=== PATIENT | female | born 1985 ===

== ENCOUNTER 2021-04-06 21:47 | Emergency (ER) | payer BC, SELFPAY ==
[2021-04-06 21:49] VITALS: BP 126/83; PULSE 74; RESP 14; TEMP 36.3; O2SAT 99
--- NOTE | 2021-04-06 23:39 | ED.ABDPAIN ---
HPI - Abdominal Pain General Chief Complaint: Abdominal Pain Stated Complaint: ABD/BACK PAIN, N/V Time Seen by Provider: 04/06/21 23:31 Source: patient and RN notes reviewed Mode of arrival: ambulatory Limitations: no limitations History of Present Illness HPI narrative: This is 36 year old female who presents for evaluation of epigastric abdominal pain. She reports she ate a left over hamburger at 530 pm this afternoon. She developed sudden onset epigastric abdominal pain with nausea and vomiting at 8 30. She reports her pain last for an hour or so. Her pain resolved by the time she came to ER. She reports history of gallstone and kidney stones. She denies fever, chills, hematuria or dysuria. MD elicited complaint: abdominal pain Pertinent past history: kidney stones Onset (ago): hour(s) Pain Consistency: now resolved Location: epigastric Radiation: back Related Data Home Medications Medication Instructions Recorded Confirmed citalopram mg 04/06/21 pravastatin 04/06/21 Allergies Allergy/AdvReac Type Severity Reaction Status Date / Time No Known Allergies Allergy Unverified 04/06/21 21:57 Review of Systems Review of Systems: All systems reviewed & are unremarkable except as noted in HPI and below PMFSH Past Medical History Medical History (Updated 04/07/21 @ 00:43 by Irasema Palma MD) Gallstones Kidney stones Family History Family History (Updated 08/12/17 @ 07:59 by DOCTOR UNKNOWN) Mother Family history of thyroid disease Social History Social History Smoking status: Never smoker Alcohol intake: current Exam Const: General: no acute distress and alert Orientation/consciousness: patient oriented x3 Eyes: EOM: EOMs intact bilaterally Resp: Effort & Inspection: normal respiratory effort and no retractions Auscultation: clear to auscultation bilaterally Cardio: Rate: regular rate Rhythm: regular rhythm Heart sounds: no murmurs GI: GI Palp: Yes Soft to palpation, No Tenderness to palpation present (GI) and No Guarding due to palpation present (GI) Auscultation: normal bowel sounds Back/Spine/Pelvis: Back: no CVA tenderness Skin: General skin exam: normal color Neuro: General: patient oriented x3, moves all extremities and CN's II-XI intact bilaterally Psych: Mental Status: mental status grossly normal Affect: normal affect Course Reevaluation(s) Reevaluation #1: I performed bedside rUQ US. No hydronephrosis of right kidney. PAtient has negative murphys's. She has no abdominal tenderness. She does have large gallstone in gallbladder. There is no pericholecystic fluid. Gallbladder is not distended. I Discussed with patient since her pain has resolved she will be discharged with follow up to surgery. I discussed diet restrictions. She has mild leukocytosis likely due to reactive from vomiting. Date: 04/07/21 Time: 00:40 Vital Signs Vital signs: Vital Signs Temperature 97.3 F L 04/06/21 21:49 Pulse Rate 74 04/06/21 21:49 Respiratory Rate 14 04/06/21 21:49 Blood Pressure 126/83 04/06/21 21:49 Pulse Oximetry 99 04/06/21 21:49 Temperature 97.3 F L 04/06/21 21:49 Pulse Rate 70 04/07/21 01:04 Respiratory Rate 16 04/07/21 01:04 Blood Pressure 120/76 04/07/21 01:04 Pulse Oximetry 97 04/07/21 01:04 MDM - Abdominal Pain Lab Data Result diagrams: 04/06/21 23:55 04/06/21 23:55 Labs: Lab Results 04/06/21 04/06/21 04/06/21 Range/Units 23:55 23:55 23:55 WBC 14.4 H (4.5-10.0) K/mm3 RBC 4.84 (4.2-5.4) M/mm3 Hgb 15.5 H (12.0-15.0) g/dL Hct 46.6 (37.0-47.0) % MCV 96.3 (80-100) fl MCH 32.0 (26-34) pg MCHC 33.3 (32-36) g/dl RDW 12.5 (11.5-14.5) % Plt Count 319 (150-375) k/mm3 MPV 9.9 (7.4-10.4) fl Immature Gran % (Auto) 0.3 (0-0.5) % Neut % (Auto) 78.9 H (45.5-73.1) % Lymph % (Auto) 14.2 L (18.3-44.2) % [place] % (Auto)
[2021-04-07 00:02] LABS: Basophils Absolute Auto 0.1 K/mm3 (0.0-0.1); Basophils Percent Auto 0.6 % (0.2-1.2); Eosinophils Absolute Auto 0.2 K/mm3 (0-0.3); Hematocrit 46.6 % (37.0-47.0); Hemoglobin 15.5 g/dL (12.0-15.0); Immature Granulocyte Absolute 0.05 K/mm3 (0.00-0.031); Immature Granulocyte Percent A 0.3 % (0-0.5); Lymphocytes Absolute Auto 2.05 K/mm3 (0.9-3.2); Lymphocytes Percent Auto 14.2 % (18.3-44.2); Mean Corpuscular HGB Conc 33.3 g/dl (32-36); Mean Corpuscular Volume 96.3 fl (80-100); Mean Platelet Volume 9.9 fl (7.4-10.4); Monocytes Absolute Auto 0.7 K/mm3 (0.1-0.6); Neutrophils Absolute Auto 11.4 K/mm3 (1.3-6.7); Neutrophils Percent Auto 78.9 % (45.5-73.1); Platelet Count Result 319 k/mm3 (150-375); Red Blood Count 4.84 M/mm3 (4.2-5.4); Red Cell Distribution Width 12.5 % (11.5-14.5); White Blood Count 14.4 K/mm3 (4.5-10.0)
[2021-04-07 00:08] LABS: Add Urine Microscopic? YES; Appearance Urine Clear (Clear); Bilirubin Urine Negative (Negative); Blood Urine 2+ (Negative); Color Urine Yellow (Yellow); Glucose Urine UA Negative (Negative); Ketones Urine Negative (Negative); Leukocyte Esterase Ur Trace LEU/UL (Negative); Mucus Urine Rare /lpf; Nitrate Urine Negative (Negative); Protein Urine Negative (Negative); Specific Grav Ur 1.014 (1.001-1.035); Squamous Epithelial Cell Urine Rare /hpf (Few); WBC Urine 0-3 /hpf
[2021-04-07 00:18] LABS: Alanine Aminotransferase 38 U/L (4-35); Albumin Level 5.1 g/dL (3.5-5.1); Alkaline Phosphatase 52 U/L (38-126); Anion Gap 14 mmol/L (8-16); Aspartate Amino Transferase 28 U/L (14-36); Bilirubin,Total 0.5 mg/dL (0.2-1.3); Blood Urea Nitrogen 16 mg/dL (7-17); Calcium 9.9 mg/dL (8.4-10.2); Carbon Dioxide 21 mmol/L (22-30); Chloride 104 mmol/L (98-107); Estimated CRCL calculation 78 ml/min; Estimated Glomerular Filt Rate > 60; Glucose 114 mg/dL (65-110); Lipase 140 U/L (23-300); Potassium 4.1 mmol/L (3.4-5.0); Sodium 139 mmol/L (137-145)
[2021-04-07 01:04] VITALS: BP 120/76; PULSE 70; RESP 16; O2SAT 97
== END 2021-04-07 01:21 | disposition home or self-care (01) ==
PROVIDERS: Emergency Provider General Practice
DX: K80.20 Calculus of gallbladder without cholecystitis without obstruction (principal); Z87.442 Personal history of urinary calculi
CPT/HCPCS: 36415; 80053; 81001; 81025; 83690; 85025; 99283